=== PATIENT | female | born 1960 | race Caucasian/White ===

== ENCOUNTER → 2019-06-12 | Outpatient (CLI) | payer BC | LOC: RAD 06-11 16:45 → VAS 16:14 | DX: R94.31 Abnormal electrocardiogram [ECG] [EKG] (principal) ==

== ENCOUNTER → 2019-06-25 | Outpatient (CLI) | payer BC | LOC: PT 15:30 | DX: Z01.818 Encounter for other preprocedural examination (principal) ==

== ENCOUNTER 2019-09-03 16:00 | Outpatient (RCR) | payer BC | END 2019-09-03 16:30 | disposition still patient (30) | LOC: PT 16:00 | DX: M25.551 Pain in right hip (principal); Z96.641 Presence of right artificial hip joint ==

== ENCOUNTER 2021-10-20 14:00 | Outpatient (RCR) | payer BC | END 2021-11-07 17:00 | disposition home or self-care (01) | LOC: PT 14:00 | DX: M25.552 Pain in left hip (principal); G89.29 Other chronic pain ==

== ENCOUNTER 2022-04-09 13:09 | Outpatient (RCR) | payer BC | END 2022-04-12 | disposition home or self-care (01) | LOC: PT | DX: M16.12 Unilateral primary osteoarthritis, left hip (principal); Z96.642 Presence of left artificial hip joint ==

== ENCOUNTER 2022-04-17 09:21 | Outpatient (RCR) | payer BC | END 2022-05-13 | disposition home or self-care (01) | LOC: PT | DX: M16.12 Unilateral primary osteoarthritis, left hip (principal); Z96.642 Presence of left artificial hip joint ==

== ENCOUNTER 2022-05-16 07:57 | Outpatient (RCR) | payer BC | END 2022-06-13 | disposition home or self-care (01) | LOC: PT | DX: M16.12 Unilateral primary osteoarthritis, left hip (principal) ==